=== PATIENT | male | born 1960 | race Caucasian/White ===

== ENCOUNTER 2021-08-22 06:04 | Outpatient (REF) | payer OTHER, SELFPAY ==
[2021-08-22 11:28] LABS: MANUAL DIFF FLAG NO
[2021-08-22 11:43] LABS: Basophils Absolute Auto 0.1 X10*3/uL (0.0-0.2); Basophils Percent Auto 1.1 % (0-2); Eosinophils Absolute Auto 0.3 X10*3/uL (0.0-0.4); Eosinophils Percent Auto 4.7 % (0-4); Hemoglobin 15.2 g/dl (14.0-18.0); Imm Gran Abs Auto 0.01 X10*3/uL (0.00-0.03); Imm Gran Pct Auto 0.2 % (0.0-0.4); Lymphocytes Absolute Auto 1.5 X10*3/uL (1.2-4.9); Lymphocytes Percent Auto 26.6 % (20-40); Mean Corpuscular HGB Conc 32.3 g/dl (31.0-36.0); Mean Corpuscular Hemoglobin 29.3 pg (27.0-33.0); Mean Corpuscular Volume 90.7 fL (80.0-98.0); Monocytes Absolute Auto 0.5 X10*3/uL (0.1-1.2); Monocytes Percent Auto 8.2 % (2-11); Neutrophils Absolute Auto 3.2 x10*3/uL (2.0-8.3); Neutrophils Percent Auto 59.2 % (45-73); Platelet Count 209 X10*3/uL (160-400); Red Blood Count 5.18 X10*6/uL (4.60-5.80); Red Cell Distribution Width 12.6 % (11.0-16.0); White Blood Count 5.5 X10*3/uL (4.8-10.8)
[2021-08-22 12:19] LABS: Alanine Aminotransferase 26 U/L (0-40); Albumin Level 4.3 g/dL (3.5-5.0); Alkaline Phosphatase 99 U/L (39-117); Anion Gap 14 (12-20); Aspartate Amino Transferase 20 U/L (5-37); Bilirubin Total 0.8 mg/dL (0.0-1.0); Blood Urea Nitrogen 19 mg/dL (9-16); Calcium 9.3 mg/dL (8.4-10.2); Carbon Dioxide 27 mmol/L (22-29); Chloride 105 mmol/L (96-108); Cholesterol 187 mg/dL; Estimated Glomerular Filt Rate > 60; Glucose Fasting 109 mg/dL (60-99); HDL Cholesterol 38 mg/dL; LDL Cholesterol Calculated 132 mg/dl; Potassium 4.2 mmol/L (3.3-5.1); Sodium 142 mmol/L (135-145); Total Protein 7.1 g/dL (6.5-8.0); Triglycerides 87 mg/dL
[2021-08-22 12:51] LABS: Thyroid Stimulating Hormone 3.63 uIU/mL (0.32-4.0)
[2021-08-23 14:18] LABS: Vitamin D 25-OH Total 21.3 ng/mL (>30)
[2021-08-23 15:52] LABS: PSA,Total (Free>4and<10) 0.62 ng/mL (0.00-4.00)
[2021-08-28 14:52] LABS: Testosterone, Free 46.1 pg/mL (35.0-155.0); Testosterone, Total 357 ng/dL (250-1100)
== END 2021-08-22 06:05 | disposition home or self-care (01) ==
LOC: HO.HMGCLDS 06:04
PROVIDERS: Visit Provider Internal Medicine
DX: I10 Essential (primary) hypertension (principal); E78.00 Pure hypercholesterolemia, unspecified; E55.9 Vitamin D deficiency, unspecified; E66.01 Morbid (severe) obesity due to excess calories; N52.9 Male erectile dysfunction, unspecified; Z12.5 Encounter for screening for malignant neoplasm of prostate
CPT/HCPCS: 36415; 80053; 80061; 82306; 84153; 84402; 84403; 84443; 85025

== ENCOUNTER 2022-04-19 13:46 | Outpatient (REF) | payer OTHER, SELFPAY | END 2022-04-19 13:47 | disposition home or self-care (01) | LOC: HO.SH 13:46 | PROVIDERS: Visit Provider Internal Medicine | DX: Z01.118 Encounter for examination of ears and hearing with other abnormal findings (principal); H90.3 Sensorineural hearing loss, bilateral; H93.13 Tinnitus, bilateral | CPT/HCPCS: 92557; 92567 ==

== ENCOUNTER → 2022-09-24 14:04 | Outpatient (BNVA) | payer OTHER, SELFPAY | PROVIDERS: PCP Internal Medicine; Visit Provider Physician Assistant | DX: Z13.89 Encounter for screening for other disorder (principal) ==

== ENCOUNTER 2023-01-03 08:49 | Day surgery (SDC) | payer OTHER, SELFPAY ==
[2023-01-01 10:47] VITALS: BMI 42.3
--- NOTE | 2023-01-03 09:04 | MHC.SHP ---
Pre-Procedural Eval Section A Date of Service: 01/03/23 The patient is an INPATIENT: No The History & Physical has been completed within 30 days and I have reviewed it.: No Section B Chief Complaint: screening Relevant Family History (Specify if Yes): Yes Relevant Social History: Tobacco Use (former smoker) Present Medications: see Short Stay Collaborative assessment Medical History: Significant History (Hypertension, hypercholesterolemia) History of Previous Operations: Relevant previous surgery/procedure and date(s) (History of ankle surgery History of left knee replacement) Allergies: Allergies Allergy/AdvReac Type Severity Reaction Status Date / Time codeine [CODEINE] Allergy Intermediate DISTORTED Verified 09/24/22 14:08 VISION/ILL FEELING, blurred vision ragweed pollen [RAGWEED] Allergy Unknown RUNNY NOSE Verified 09/24/22 14:08 shellfish? Contracted Hep C Allergy Unknown Unknown Uncoded 09/24/22 14:08 w/ Review of Systems Sugical H&P ROS: Negative: Constitution, Cardiovascular, Respiratory and Gastrointestinal Exam Surgical H&P Exam: Normal: Heart, Normal: Lungs, Normal: Extremities and Normal: Abdomen Plan Diagnosis/Plan: Unchanged I have reviewed the history and physical and performed a pertinent physical examination on my patient. No changes have occurred unless specified. Time Spent With Patient Time: Total time managing care of this patient today ____ minutes.
[2023-01-03 09:28] VITALS: BP 162/89; PULSE 81; RESP 18; TEMP 36.8; O2SAT 95
--- NOTE | 2023-01-03 09:57 | P.CONAN_ITS ---
[facility] Active Problems Active Problems: All Active Problems (Updated 01/01/23 @ 10:54 by Alysa Camarena RN) Colon polyps (Acute) Past Medical History Medical History HTN (hypertension) Hypercholesteremia Morbid obesity Vitamin D deficiency Family History Family History Father Cancer Mother Cancer Family history of problems with anesthesia: No Surgical History Surgical History History of ankle surgery History of left knee replacement History of Problems with Anesthesia: No Social History Social History Household Members: None Alcohol intake: current Alcohol intake frequency: 0-2 drinks per day Patient Tobacco Use Status: Never used Tobacco Have you been hit, kicked, punched, or otherwise hurt by someone within the past year? If so, by whom?: No Are you DNR?: No Advance Directives: No Advance Directives Information Provided: Yes Recently lost weight without trying: No Eating poorly because of decreased appetite: No Nutrition Risks: No Nutritional Risk Meds Allergies Allergy/AdvReac Type Severity Reaction Status Date / Time codeine [CODEINE] Allergy Intermediate DISTORTED Verified 09/24/22 14:08 VISION/ILL FEELING, blurred vision ragweed pollen [RAGWEED] Allergy Unknown RUNNY NOSE Verified 09/24/22 14:08 shellfish? Contracted Hep C Allergy Unknown Unknown Uncoded 09/24/22 14:08 w/ Active Medications: Current Medications Lactated Ringer's (Lr) 1,000 mls @ 100 mls/hr IVCONT .Q10H [facility] Home Medications Medication Instructions Recorded Confirmed Last Taken Type ergocalciferol (vitamin D2) 1,250 PO 09/24/22 09/24/22 Unknown History mcg (50,000 unit) capsule (Vitamin D2) furosemide 40 mg tablet 40 mg PO BID 09/24/22 09/24/22 Unknown History Exam Exam Date and Time: January 03, 2023 0957 Height,Weight and Vital Signs: Height 6 ft 5 in Weight 161.932 kg Last Vital Signs Temp 98.2 F 01/03/23 09:28 Pulse 81 01/03/23 09:28 Resp 18 01/03/23 09:28 BP 162/89 H 01/03/23 09:28 Pulse Ox 95 01/03/23 09:28 O2 Del Method Room Air 01/03/23 09:28 Airway Mallampati Class: II TM Dist: >3cm Neck ROM: Full Heart: rrr Lungs: cta Assessment and Plan Assessment Anesthesia Assessment: Anesthesia Plan Discussed and Chart Reviewed Final Anesthetic Review Family History of Problems with Anesthesia: No History of Problems with Anesthesia: No NPO: Yes ASA Class: III Final Preanesthetic Review: No Changes in Pt Med Stat, Meds/Allgs Chart Reviewed and Consent Obtained/Reviewed Patient Risk: Intermediate Procedure Risk: Intermediate Anesthetic Plan Anesthetic Plan: MAC: Disposition: Standard PACU
--- NOTE | 2023-01-03 10:19 | W.PM.OPN ---
Operative Note Operative Note Date of Service: 01/03/23 Narrative: COLONOSCOPY TILL CECUM WITH BIOPSIES AND SNARE POLYPECTOMY Pre-op diagnosis: Screening, history of colon polyps Post-op diagnosis:? Colon polyps, diverticulosis, hemorrhoids Endoscopist:? Wilber Nunn MD Anesthesia:?MAC Consent: Indications for the procedure and potential complications of bleeding, perforation, reaction to medications and missed diagnosis were discussed with the patient and informed consent was obtained. Instrument: Olympus CF H 190 L variable stiffness adult colonoscope Monitoring: Vital signs and clinical assessment, intermittent blood pressure monitoring, continuous EKG monitoring, Pulse oximetry and Carbon Dioxide monitoring were done throughout the procedure. Please see anesthesia flowsheet. Colon withdrawl time was 23 minutes. Procedure: The patient was placed in the left lateral decubitis position and pre-procedure medications were administered. After a digital rectal examination of the ano-rectum, the video colonoscope was inserted into the rectum and advanced through the colon to the cecum. The colonoscope was slowly withdrawn in a retrograde panoramic fashion and the colon mucosa was carefully examined including a retroflexed view of the rectum. Findings and interventions are described below. Procedure Difficulty: Without difficulty - colon was long and there was some loop formation. Findings: Terminal Ileum: Not evaluated Cecum: Normal Ascending Colon: A 7-8 mm sessile polyp in the distal AC/hepatic flexure - removed with a cold snare. Residual polyp was removed with a cold biopsy Transverse Colon: A 7 to 8 mm sessile polyp - removed with a cold snare Descending Colon: Normal Sigmoid Colon: A 3-4 mm sessile polyp - removed with a cold biopsy. Moderate diverticulosis Rectum: Normal Ano-rectum: Moderate internal hemorrhoids Colon preparation: Good Impression and Post Procedure Diagnosis: Colonoscopy Findings: Three small polyps removed Moderate diverticulosis seen in the sigmoid colon Moderate hemorrhoids on retroflexed exam. Plan: Await pathology results Patient has an appointment on 01/14/23 in the GI Clinic with MICKI Ramirez. Repeat Colonoscopy interval based on path results - in 3-5 years if polyps are adenomatous and 10 years if polyps are hyperplastic. Above findings were reviewed with the patient and colon polyps and diverticulosis handouts were given in the discharge area
[2023-01-03 11:06] VITALS: BP 129/74; PULSE 75; RESP 16; TEMP 36.7; O2SAT 97
[2023-01-03 11:21] VITALS: BP 135/74; PULSE 75; RESP 16; TEMP 36.7; O2SAT 97
== END 2023-01-03 11:48 | disposition home or self-care (01) ==
PROVIDERS: PCP Internal Medicine; Visit Provider Internal Medicine Gastroenterology
PROC: 0DJD8ZZ Inspection of Lower Intestinal Tract, Via Natural or Artificial Opening Endoscopic (ICD-10-PCS; CPT 45378; principal; 2023-01-03 10:20)
DX: Z12.11 Encounter for screening for malignant neoplasm of colon (principal); Z86.010 Personal history of colon polyps; K63.5 Polyp of colon; K57.30 Diverticulosis of large intestine without perforation or abscess without bleeding; K64.8 Other hemorrhoids; I10 Essential (primary) hypertension; E78.00 Pure hypercholesterolemia, unspecified; E66.01 Morbid (severe) obesity due to excess calories; Z68.41 Body mass index [BMI] 40.0-44.9, adult; E55.9 Vitamin D deficiency, unspecified; Z79.82 Long term (current) use of aspirin; Z79.899 Other long term (current) drug therapy; Z88.8 Allergy status to other drugs, medicaments and biological substances; Z87.891 Personal history of nicotine dependence
CPT/HCPCS: 45385; 45380; 88305

== ENCOUNTER → 2023-01-03 08:49 | Outpatient (BNV) | payer OTHER, SELFPAY | PROVIDERS: PCP Internal Medicine; Visit Provider Internal Medicine Gastroenterology | DX: Z12.11 Encounter for screening for malignant neoplasm of colon (principal); Z86.010 Personal history of colon polyps; K63.5 Polyp of colon; K64.8 Other hemorrhoids | CPT/HCPCS: 45380; 45385 ==

== ENCOUNTER 2023-08-18 06:16 | Outpatient (REF) | payer OTHER, SELFPAY ==
[2023-08-18 11:08] LABS: MANUAL DIFF FLAG NO
[2023-08-18 11:23] LABS: Basophils Absolute Auto 0.1 X10*3/uL (0.0-0.2); Basophils Percent Auto 1.3 % (0-2); Eosinophils Absolute Auto 0.3 X10*3/uL (0.0-0.4); Eosinophils Percent Auto 5.2 % (0-4); Hematocrit 44.6 % (42.0-52.0); Hemoglobin 14.6 g/dl (14.0-18.0); Imm Gran Abs Auto 0.02 X10*3/uL (0.00-0.03); Imm Gran Pct Auto 0.4 % (0.0-0.4); Lymphocytes Absolute Auto 1.6 X10*3/uL (1.2-4.9); Lymphocytes Percent Auto 28.9 % (20-40); Mean Corpuscular HGB Conc 32.7 g/dl (31.0-36.0); Mean Corpuscular Hemoglobin 29.6 pg (27.0-33.0); Mean Corpuscular Volume 90.5 fL (80.0-98.0); Mean Platelet Volume 10.5 fL (9.4-12.4); Monocytes Absolute Auto 0.4 X10*3/uL (0.1-1.2); Monocytes Percent Auto 7.5 % (2-11); Neutrophils Absolute Auto 3.2 x10*3/uL (2.0-8.3); Neutrophils Percent Auto 56.7 % (45-73); Platelet Count 202 X10*3/uL (160-400); Red Blood Count 4.93 X10*6/uL (4.60-5.80); Red Cell Distribution Width 12.7 % (11.0-16.0); White Blood Count 5.6 X10*3/uL (4.8-10.8)
[2023-08-18 11:43] LABS: Alanine Aminotransferase 25 U/L (0-40); Albumin Level 3.9 g/dL (3.5-5.0); Alkaline Phosphatase 93 U/L (39-117); Anion Gap 12 (12-20); Aspartate Amino Transferase 22 U/L (5-37); Bilirubin Total 0.4 mg/dL (0.0-1.0); Blood Urea Nitrogen 14 mg/dL (9-16); Calcium 8.9 mg/dL (8.4-10.2); Carbon Dioxide 27 mmol/L (22-29); Chloride 108 mmol/L (96-108); Cholesterol 180 mg/dL (<200); Estimated Glomerular Filt Rate > 60; Glucose Fasting 123 mg/dL (60-99); HDL Cholesterol 39 mg/dL (>40); LDL Cholesterol Calculated 123 mg/dL (<100); Potassium 4.9 mmol/L (3.3-5.1); Sodium 142 mmol/L (135-145); Total Protein 6.7 g/dL (6.5-8.0); Triglycerides 91 mg/dL (<150)
[2023-08-18 11:53] LABS: PSA,Total (Free>4and<10) 0.45 ng/mL (0.00-4.00)
[2023-08-18 12:04] LABS: Thyroid Stimulating Hormone 4.37 uIU/mL (0.32-4.0); Vitamin D 25-OH Total 35.6 ng/mL (>30)
== END 2023-08-18 06:17 | disposition home or self-care (01) ==
LOC: HO.HMGCLDS 06:16
PROVIDERS: PCP Internal Medicine; Visit Provider Internal Medicine
DX: Z00.00 Encounter for general adult medical examination without abnormal findings (principal); Z12.5 Encounter for screening for malignant neoplasm of prostate; I10 Essential (primary) hypertension; E78.00 Pure hypercholesterolemia, unspecified; E66.01 Morbid (severe) obesity due to excess calories; E55.9 Vitamin D deficiency, unspecified
CPT/HCPCS: 36415; 80053; 80061; 82306; 84153; 84443; 85025

== ENCOUNTER 2024-08-10 15:19 | Outpatient (AMB) | payer OTHER, SELFPAY ==
--- NOTE | 2024-08-10 15:32 | MHC.PC.OV ---
Vital Signs 08/10/24 15:36 Height 6 ft 5 in Weight 370 lb BMI 43.9 BP 146/92 H Respiration 16 Pulse 68 Pulse Source Pulse Oximeter Temp 97.8 F Temp Source Temporal Artery Scan Pulse Oximetry (%) 95 Oxygen Delivery Method Room Air Intake Visit Reasons: physical Accompanied by: Self / Same As Patient Allergies codeine [CODEINE] Allergy (Intermediate, Verified 08/12/24 18:59) DISTORTED VISION/ILL FEELING, blurred vision ragweed pollen [RAGWEED] Allergy (Unknown, Verified 08/12/24 18:59) RUNNY NOSE shellfish? Contracted Hep C w/ Allergy (Unknown, Uncoded 08/12/24 18:59) Unknown Medication List - Last Reconciled 08/12/24 by Randell Ray MD amoxicillin 2,000 mg (4 x 500 mg) PO ONCE aspirin 325 mg PO DAILY ergocalciferol (vitamin D2) (Vitamin D2) 1,250 mcg PO QWEEK 90 days Tobacco use date assessed: 08/10/24 Fall risk assessment: 1 Fall in past year Last assessed Fall Risk: 08/10/24 Dental Screening Dental Screen Date: 08/10/24 Did you have a dental visit in the last 12 months?: No Did you have a dental problem in the last 6 months where you did not have access to dental care?: No PFSH Medical History Morbid obesity Vitamin D deficiency Hypercholesteremia HTN (hypertension) Surgical History Hx of colonoscopy History of left knee replacement History of ankle surgery Family History Father Cancer Mother Cancer Social History Household Members: None Housing: House Alcohol intake: current Alcohol intake frequency: 0-2 drinks per day Patient Tobacco Use Status: Former Tobacco user service: No Current occupational status: employed Cognitive needs: No Hearing needs: No Vision needs: Yes (rx glasses) Questionnaire PHQ-9 Over the last 2 weeks, how often have you been bothered by any of the following problems? 1. Little interest or pleasure in doing things: not at all 2. Feeling down, depressed, or hopeless: not at all 3. Trouble falling or staying asleep, or sleeping too much: not at all 4. Feeling tired or having little energy: not at all 5. Poor appetite or overeating: not at all 6. Feeling bad about yourself - or that you are a failure or have let yourself or your family down: not at all 7. Trouble concentrating on things, such as reading the newspaper or watching television: not at all 8. Moving or speaking so slowly that other people could have noticed. Or the opposite - being so fidgety or restless that you have been moving around a lot more than usual: not at all 9. Thoughts that you would be better off or of hurting yourself in some way: not at all Total score: 0 Source: Developed by Drs. Yonatan Reed, Bhumi Mitchell, Manish Arango and colleagues, with an educational rod from [employer]. Thrive Questionnaire Date Thrive assessed: 08/10/24 I am a: Patient What is your living situation today?: I have a steady place to live Within the past 12 months, did the food you bought not last and you didn't have the money to get more?: Never true Within the past 12 months, did you worry whether your food would run out before you got money to buy more?: Never true Do you have trouble paying for medicines?: No Do you have trouble getting transportation to medical appointments?: No Do you have trouble paying your heating and electricity bill?: No Do you have trouble taking care of your child, family member or friend?: No Do you have trouble with day-to-day activities such as bathing, preparing meals, shopping, managing finances, etc.?: No Are you currently unemployed and looking for a job?: No Are you interested in more education?: No THRIVE Score: 0 AUDIT C Alcohol Use Questionnaire (AUDIT-C) 1. How often do you have a drink containing alcohol?: Monthly or less 2. How many drinks containing alcohol do you have on a typical day when you are drinking?: 1 or 2 3. How often do you have six or more drinks on one occasion?: Never Total Score: 1 VIRAL-7 AMB Questionnaire VIRAL-7 Date VIRAL - 7 assessed: 08/10/24 Feeling nervous, anxious, or on edge: 0 = Not at all Not being able to stop or control worryin = Not at all Worrying too much about different things: 0 = Not at all Trouble relaxin = Not at all Being so restless that it is hard to sit still: 0 = Not at all Becoming easily annoyed or irritable: 0 = Not at all Feeling afraid as if something awful might happen: 0 = Not at all Total VIRAL-7 score (0-4 normal; 5-9 mild; 10-14 moderate; 15-21 severe): 0 Source: Developed by Drs. Yonatan Reed, Bhumi Mitchell, Manish Arango and colleagues, with an educational rod from [employer]. Physical exam (Primary Care) Vital Signs: Last Vital Signs Temp 97.8 F 08/10/24 15:36 Pulse 68 08/10/24 15:36 Resp 16 08/10/24 15:36 BP 146/92 H 08/10/24 15:36 Pulse Ox 95 08/10/24 15:36 Oxygen Delivery Method Room Air 08/10/24 15:36 BMI result Body Mass Index 43.9 Tobacco/Smoking Status: Tobacco use Status Tobacco use date assessed 08/10/24 08/10/24 15:46 Patient Tobacco Use Status Former Tobacco user 08/10/24 15:46 PHQ-9: PHQ-9 Score PHQ-9: Total score 0 08/10/24 15:46 Thrive Assessment: Date of Thrive Assessment Date Thrive assessed 08/10/24 08/10/24 15:46 Coding Level of Care Code New Pt Prev Care 40-64y(31872) Diagnoses Annual physical exam Z00.00 Assessment & Plan Assessment & Plan (1) Annual physical exam: Code(s): Z00.00 - Encounter for general adult medical examination without abnormal findings Plan: History of Present Illness The patient is a 64-year-old male presenting with concerns of weight gain after knee surgery, guidance on antibiotic prophylaxis for a dental procedure related to the prior knee operation, and a history of a blood clot. The weight gain occurred subsequent to knee surgery, which did not have the desired outcome. The requirement for antibiotics stems from advice related to his knee operation, although medically deemed unnecessary. In terms of his anticoagulation management, the patient was previously on warfarin for three years. The regimen changed to aspirin due to fatigue attributed to warfarin. He manages clot-related issues with compression using gauze, sports wrap, and ESTEFANI bandage, reporting long-term success in ulcer prevention. The patient also reports a recent fall causing back pain, which is improving without the need for pain medication. 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 - Family: with four daughters and discussing their educational and career achievements. One daughter is a PhD candidate in psychology, another is a nurse, the third is an artist, and the fourth is a mother of young children. Review of Systems - Musculoskeletal: Reports recent back pain following a fall. Physical Exam General: Cooperative and healthy appearing Nutritional Appearance: Well nourished Orientation/consciousness: Patient oriented x3 Limitations: No limitations Head: Normal to inspection General: Appearance normal, both eyes and all related structures Neck: Normal visual inspection Chest: Normal palpation of entire chest wall Respiratory: Normal respiratory effort Neurology: Patient oriented x3 Results Plan Weight gain following knee surgery will be monitored and managed with lifestyle interventions as the first line of approach. Antibiotic prophylaxis with Amoxicillin 500 mg tablets has been scheduled for the upcoming dental procedure, respecting the patient's preference against standard practice. The existing aspirin regimen for the history of blood clots will continue, as the transition away from warfarin was guided by adverse effects. Fasting blood work has been arranged, and instructions delineated. The patient's back pain is self-resolving with no desire for additional therapeutic measures. Patient was informed and verbally consented to the use of an ambient scribe for clinic note documentation during this visit. Discussion Notes I discussed the patient's health concerns, including the weight gain following knee surgery, and advised lifestyle modifications as the initial approach for management. We deliberated on the necessity of antibiotic prophylaxis for dental procedures, with Amoxicillin 500 mg prescribed despite the absence of a medical indication, honoring patient preference. For the history of blood clot, we reviewed the switch from warfarin to aspirin, agreeing to continue the current aspirin therapy. Blood work was ordered to evaluate baseline health metrics, with guidance on pre-test fasting protocol provided. We explored the recent back injury, with a mutual decision to forgo pharmacotherapy given its improving condition. Patient Instructions - Monitor weight and consider lifestyle changes to manage weight gain. - Take Amoxicillin 500 mg one hour prior to dental procedures. - Continue current aspirin regimen. - Arrange for fasting blood work, fasting post-midnight with only black coffee or water allowed. - No current intervention for back pain; monitor symptoms and seek care if condition worsens. Orders: Orders Complete Blood Count no Diff 08/10/24 E78.5 - Hyperlipidemia, unspecified, Z00.00 - Encounter for general adult medical examination without abnormal findings Basic Metabolic Panel 08/10/24 E78.5 - Hyperlipidemia, unspecified, Z00.00 - Encounter for general adult medical examination without abnormal findings Lipid Panel 08/10/24 E78.5 - Hyperlipidemia, unspecified, Z00.00 - Encounter for general adult medical examination without abnormal findings Thyroid Stimulating Hormone 08/10/24 E78.5 - Hyperlipidemia, unspecified, Z00.00 - Encounter for general adult medical examination without abnormal findings Liver Panel 08/10/24 E78.5 - Hyperlipidemia, unspecified, Z00.00 - Encounter for general adult medical examination without abnormal findings UA and rflx microscopic 08/10/24 E78.5 - Hyperlipidemia, unspecified, Z00.00 - Encounter for general adult medical examination without abnormal findings Prostate Specific Antigen Scr 08/10/24 E78.5 - Hyperlipidemia, unspecified, Z00.00 - Encounter for general adult medical examination without abnormal findings Medications: New amoxicillin 2,000 mg (4 x 500 mg) PO ONCE 4 caps 0RF
[2024-08-10 15:36] VITALS: BP 146/92; PULSE 68; RESP 16; TEMP 36.6; O2SAT 95; BMI 43.9
--- OUTSIDE RECORDS SUMMARY | 2024-08-10 18:34 | XMS_ITS | Clinical Summary ---
Author Organization [facility] Address [address] [place] [address] Care Team Providers Care Impact Retail Service Merchandiser Name Role Phone Unavailable Primary Care Provider Unavailabl e Source Comments PLEASE NOTE, if this patient is a minor, it may be UNLAWFUL to discuss sensitive information that is contained in these records (such as FAMILY PLANNING, MENTAL HEALTH or SUBSTANCE ABUSE) with the minor patient's parent or other person without the patient's specific authorization.[facility] Immunizations Name Administration Dates Next Due Moderna COVID-19 Vaccine, re d cap blue label, 12+ Primary Series 10/09/2020,09/08/2020 Social History Tobacco Use Types Packs/Day Years Used Date Smoking Tobacco: Never Assessed Social Connections Answer Date Recorded Social Connections and Isolation 0 09/08/2020 Financial Resource Strain Answer Date R ecorded Financial Resource Strain 0 2020 Stress Answer Date Recorded Stress 0 09/08/2020 Physical Activity Answer Date Recorded Physical Activity 0 09/08/2020 Food Insecurity Answer Date Recorded Food 0 09/08/2020 Transportation Needs Answer Date Record ed Transportation 0 09/08/2020 Housing Stability Answer Date Recorded Housing 0 09/08/2020 Safety and Environment Answer Date Brian rded Safety 0 09/08/2020 Utilities Answer Date Recorded Utilities 0 09/08/2020 Employment Answer Date Recorded Employment 0 09/08/2020 Sex and Gender Information Value Date Recorded Sex Assigned at Not on file Legal Sex Male 12:03 PM PDT Gender Identity Not on file Sexual Orientation Not on file Plan of Treatment Health Maintenance Due Date Last Done Comments Diabetes Screening 1960 Hepatitis C Screening 1960 Lipid Screening 1960 Tobacco Screening 1960 HIV Screening 1975 Annual Preventive Care Visit 1978 Hypertension Screening (#1) 1978 Imm-DTaP/Tdap/Td (1 - Tdap) 1979 CT Colonography 2005 Colonoscopy 2005 Colorectal Cancer Screening 2005 FIT/gFOBT 2005 Fecal DNA 2005 Flexible Sigmoidoscopy 2005 Alcohol and Drug Screen 06/02/2023 Depression Annual Screen 06/02/2023 [id number] ( season) 2024 021, 09/08/2020 Imm-Influenza (#1) 2024 03/07/2020, 1 06/13/2018, 02/13/2017, Additional history exists Imm-Zoster, Recombinant Completed 05/28/2020, 03/07 Insurance [facility] ([facility]) Member Subscriber Plan / Payer (Ef fective 2020-Present) Name:Octavia Gabriel Relation to Subscriber:Self Name:Gabriel Dudley Payer ID:[id number] Group ID:[id number] Type:Indemnity Address: [address] [place] [address]
== END 2024-08-10 16:22 | disposition home or self-care (01) ==
LOC: HO.HMCSH 15:19
PROVIDERS: PCP Internal Medicine; Visit Provider Internal Medicine
DX: Z00.00 Encounter for general adult medical examination without abnormal findings (principal)

== ENCOUNTER → 2024-08-10 15:19 | Outpatient (BNVA) | payer OTHER, SELFPAY | PROVIDERS: PCP Internal Medicine; Visit Provider Internal Medicine ==

== ENCOUNTER 2024-11-01 06:08 | Outpatient (REF) | payer OTHER, SELFPAY ==
--- OUTSIDE RECORDS SUMMARY | 2024-11-01 06:11 | XMS_ITS | Clinical Summary ---
Author Organization [facility] Address [address] [place] [address] Care Team Providers Care Tenant Relations Coordinator Name Role Phone Unavailable Primary Care Provider Unavailabl e Source Comments PLEASE NOTE, if this patient is a minor, it may be UNLAWFUL to discuss sensitive information that is contained in these records (such as FAMILY PLANNING, MENTAL HEALTH or SUBSTANCE ABUSE) with the minor patient's parent or other person without the patient's specific authorization.[facility] Immunizations Immunization Administration Dates Next Due Moderna COVID-19 Vaccine, [...] Health Maintenance Due Date Last Done Comments Anxiety Screening 1960 Diabetes Screening 1960 Hepatitis C Screening 1960 Lipid Screening 1960 Tobacco Screening 1960 HIV Screening 1975 Hypertension Screening (#1) 1978 Imm-DTaP/Tdap/Td (1 - Tdap) 1979 CT Colonography 2005 Colonoscopy 2005 Colorectal Cancer Screening 2005 FIT/gFOBT 2005 Fecal DNA 2005 Flexible Sigmoidoscopy 2005 [id number] ( season) 2024 021, 09/08/2020 Imm-Influenza (#1) 2024 03/07/2020, 1 06/13/2018, 02/13/2017, Additional history exists Alcohol and Drug Screen 06/02/2024 Depression Annual Screen 06/02/2024 Imm-Zoster, Recombinant Completed 05/28/2020, 03/07 Insurance [facility] ([facility]) Member Subscriber Plan / Payer (Ef fective 2020-Present) Name:Gabriel Dudley Relation to Subscriber:Self Name:Gabriel Dudley Payer ID:[id number] Group ID:[id number] Type:Indemnity Address: [address] [place] [address]
[2024-11-01 10:19] LABS: Hematocrit 46.3 % (42.0-52.0); Hemoglobin 15.4 g/dl (14.0-18.0); Mean Corpuscular HGB Conc 33.3 g/dl (31.0-36.0); Mean Corpuscular Hemoglobin 29.9 pg (27.0-33.0); Mean Corpuscular Volume 89.9 fL (80.0-98.0); Mean Platelet Volume 10.5 fL (9.4-12.4); Platelet Count 206 X10*3/uL (160-400); Red Blood Count 5.15 X10*6/uL (4.60-5.80); Red Cell Distribution Width 12.2 % (11.0-16.0); White Blood Count 6.2 X10*3/uL (4.8-10.8)
[2024-11-01 10:31] LABS: Appearance Urine Clear; Color Urine Yellow; Glucose Urine UA Negative (Negative); Leukocyte Esterase Urine Negative (Negative); Nitrite Urine Negative (Negative); UMIC TRIGGER UA YES; Urine Blood Trace (Negative); Urine Ketones Negative (Negative); Urine Protein 100 (2+) mg/dL (Neg-Trace)
[2024-11-01 10:35] LABS: Bacteria Urine None Seen (None Seen); Hyaline Casts Urine 0-2 /LPF (0-2); RBC Urine 0-2 /HPF (0-2); Squamous Epithelial Cell Urine 0-2 /HPF (0-2); WBC Urine 0-5 /HPF (0-5)
[2024-11-01 10:46] LABS: Prostate Specific Antigen Scr 0.66 ng/mL (<0.05-4.0)
[2024-11-01 10:52] LABS: Alanine Aminotransferase 24 U/L (0-40); Albumin Level 4.3 g/dL (3.5-5.0); Alkaline Phosphatase 104 U/L (39-117); Anion Gap 11 (12-20); Aspartate Amino Transferase 25 U/L (5-37); Bilirubin Direct 0.2 mg/dL (0.0-0.5); Bilirubin Total 0.5 mg/dL (0.0-1.0); Blood Urea Nitrogen 18 mg/dL (9-16); Calcium 9.2 mg/dL (8.4-10.2); Carbon Dioxide 28 mmol/L (22-29); Chloride 106 mmol/L (96-108); Cholesterol 189 mg/dL (<200); Estimated Glomerular Filt Rate > 60; Glucose Random 123 mg/dL (60-115); HDL Cholesterol 40 mg/dL (>40); LDL Cholesterol Calculated 131 mg/dL (<100); Potassium 4.2 mmol/L (3.3-5.1); Sodium 141 mmol/L (135-145); Thyroid Stimulating Hormone 4.58 uIU/mL (0.32-4.0); Total Protein 7.1 g/dL (6.5-8.0); Triglycerides 91 mg/dL (<150)
== END 2024-11-01 06:09 | disposition home or self-care (01) ==
LOC: HO.HMGCLDS 06:08
PROVIDERS: PCP Internal Medicine; Visit Provider Internal Medicine
DX: E78.5 Hyperlipidemia, unspecified (principal); Z00.00 Encounter for general adult medical examination without abnormal findings
CPT/HCPCS: 36415; 80048; 80061; 80076; 81001; 84153; 84443; 85027

== ENCOUNTER 2025-01-18 15:34 | Outpatient (REF) | payer OTHER, SELFPAY ==
--- NOTE | ~2025-01-18 | XR_ITS ---
Exam: Five-view lumbar spine x-ray TECHNIQUE: AP, lateral, lateral spot, and bilateral oblique views of the lumbar spine Prior: November 13, 2013 INDICATION: LOW BACK PAIN. S/P FALL IN OCTOBER. R/O DJD, DDD, FX FINDINGS: There are 5 nonrib-bearing lumbar segments with sacralization of L5. There are increasing large anterior osteophytes throughout the lumbar spine. There is mild loss of disc height at L3-4, L4-5, and L5-S1, more pronounced than on the prior. There are increasing facet osteophytes and sclerosis throughout the lumbar spine. No pars interarticularis defects are identified on oblique views. XR/XR lumbar spine 4V min IMPRESSION: Increasing degenerative disc disease and facet arthropathy. Electronically signed by: Kaz Suresh MD 01/18/2025 04:47 PM EDT
--- OUTSIDE RECORDS SUMMARY | 2025-01-18 16:53 | XMS_ITS | Patient Health Record ---
Author Organization [facility] Address [address] [place] [address] Care Team Providers Care Stone Belt Sander Name Role Phone Yonatan Sandhu Unavailable [phone] Reason For Referral No Information Plan Of Treatment No Information
--- OUTSIDE RECORDS SUMMARY | 2025-01-18 16:53 | XMS_ITS | Clinical Summary ---
Author Organization [facility] Address [address] [place] [address] Care Team Providers Care Eye Care Professional Name Role Phone Unavailable Primary Care Provider [...] 2005 Fecal DNA 2005 Flexible Sigmoidoscopy 2005 Imm-Pneumococcal 50+ (1 of 1 - PCV) 2010 [id number] (3 - season) 2024 021, 09/08/2020 Alcohol and Drug Screen 06/02/2024 Depression Annual Screen 06/02/2024 Imm-Influenza (#1) 2025 03/07/2020, 1 06/13/2018, 02/13/2017, Additional history exists Imm-Zoster, Recombinant Completed 05/28/2020, 03/07 Insurance [facility] ([facility]) Member Subscriber Plan / Payer (Ef fective 2020-Present) Name:Gabriel Dudley Relation to Subscriber:Self Name:Gabriel Dudley Payer ID:[id number] Group ID:[id number] Type:Indemnity Address: [address] [place] [address]
--- OUTSIDE RECORDS SUMMARY | 2025-01-18 16:53 | XMS_ITS | Patient Health Record ---
Author Organization [facility] Address [address] [place] [address] Care Team Providers Care Pack Master Name Role Phone Yonatan Lopez MD Primary Care Provider Unavail able Suly Herzog Unavailable [phone] Allergies Allergen (clinical drug ingredient) Drug/Non Drug Allergy documented on EMR Reaction Allergy Type Onset Date Status Codeine Unknown Drug Allergy Active Reason For Referral No Information Medications Medication SIG (Take, Route, Fr equency, Duration) Notes Start Date End Date Status ASA 1 tab Oral Active oxyCODONE HCl 10 MG 1 tablet as needed O rally every 6 hrs PRN Active Problems No Known Problems Plan Of Treatment Pending Test Test Name Order Date *Liver Function Test (LFT) 03/19/2016 Insurance Providers Payer Name Payer Address Payer Phone Subscriber Number Group Number Insured Name Patient Relationship to Insured Coverage Start Date Coverage End Date [facility] [address] [place] [address] [id number] Gabriel Dudley Self - patient is the insured Medical (General) History Medical History History ICD Code Psoriasis Joint implants/screws H/O DVT Surgical History Surgery Date(Month/Year) ankle fusion right
== END 2025-01-18 15:35 | disposition home or self-care (01) ==
LOC: HO.HMGCX 15:34
PROVIDERS: PCP Internal Medicine; Visit Provider Physical Medicine & Rehabilitation
DX: M54.50 Low back pain, unspecified (principal)
CPT/HCPCS: 72110

== ENCOUNTER → 2025-01-18 15:40 | Outpatient (BNV) | payer OTHER, SELFPAY | PROVIDERS: PCP Internal Medicine; Visit Provider Radiology Diagnostic Radiology | DX: M47.816 Spondylosis without myelopathy or radiculopathy, lumbar region (principal) | CPT/HCPCS: 72110 ==